=== PATIENT | female | born 1995 | race Caucasian/White ===

== ENCOUNTER → 2018-10-18 | Outpatient (CLI) | payer OTHER | LOC: M.ULTRA 10:06 | DX: E04.1 Nontoxic single thyroid nodule (principal) ==

== ENCOUNTER → 2018-12-16 | Outpatient (CLI) | payer OTHER ==
[2018-12-16] VITALS (22 sets, daily range): BP systolic 96–120; BP diastolic 50–83
[~2018-12-16] MED LIST: OMEPRAZOLE20 MG PO; ZOFRAN ODT4 MG PO
--- NOTE | ~2018-12-16 | CARD ---
[address] [address] CARDIAC CATH REPORT Name: CARLITOS CHACON Room: [facility]#: [id number] Admission: 12/16/18 Attend Phys: Jean-Claude Harvey MD Discharge: Date of : 89 Report #: [id number] THIS REPORT FOR: //name// CC: Antoinette Harvey DATE OF SERVICE: 12/22/2018 TILT TABLE TEST ORDERING PHYSICIAN: Dr. Harvey. INDICATION: Syncope. CONSENT: The risks and benefits of the procedure described to the patient in lay terms. After informed consent, the patient was taken to the systems testing laboratory technician holding area where the procedure was performed. Her pretest blood pressure and heart rate were 117/72 with heart rate of 79 in sinus rhythm. Her blood pressure and heart rate were monitored at approximately 5-minute intervals. She was tilted to 90 degrees. At that time, her blood pressure was 109/72 with a pulse of 94. At approximately 20 minutes, the patient was given nitroglycerin 0.4 mg. At that time, her blood pressure is 109/72 with a pulse of 93, again still in sinus rhythm. She got dizzy and lightheaded, but had no loss of consciousness. She had no cardiac pauses or tachyarrhythmia. IMPRESSION: Negative upright tilt table test for neurocardiogenic syncope. By: [id number] Stewart MD, CATRINAC /nt
== END | disposition home or self-care (01) ==
LOC: M.CL 08:10
DX: R55 Syncope and collapse (principal); Z79.899 Other long term (current) drug therapy

== ENCOUNTER → 2019-01-31 | Outpatient (CLI) | payer OTHER | LOC: M.ULTRA 10:15 | DX: N94.6 Dysmenorrhea, unspecified (principal); N92.0 Excessive and frequent menstruation with regular cycle; D64.9 Anemia, unspecified; J45.909 Unspecified asthma, uncomplicated; F17.200 Nicotine dependence, unspecified, uncomplicated; F32.9 Major depressive disorder, single episode, unspecified; Z72.89 Other problems related to lifestyle; Z79.899 Other long term (current) drug therapy ==

== ENCOUNTER → 2019-03-15 | Outpatient (CLI) | payer OTHER | LOC: M.ULTRA 13:21 | DX: E04.1 Nontoxic single thyroid nodule (principal) ==

== ENCOUNTER → 2019-04-22 | Outpatient (CLI) | payer OTHER ==
--- NOTE | 2019-04-26 17:06 | PATH ---
[address] [address] PATHOLOGY RPT PROCEDURE Name: CARLITOS CHACON Room: [facility]#: [id number] Admission: 04/22/19 Date of : 89 Discharge: Report #: [id number] Path Case #: [id number] Note [facility] Accession Number: [id number] TESTS RESULT FLAG UNITS REF RANGE LAB Clinician Provided Cytology Information No. of containers..01 Other (Miscellaneous) Source: THYROID NODULE DIAGNOSIS: THYROID NODULE, ULTRASOUND-GUIDED FNA BIOPSY: INCONCLUSIVE. B[place] CATEGORY III. ATYPIA OF UNDETERMINED SIGNIFICANCE.SEE COMMENT. THIS INTERPRETATION INCLUDES EVALUATION OF A CELL BLOCK. COMMENT: A RETAIN SAMPLE WILL BE SUBMITTED FOR MOLECULAR STUDIES AND WILL BE THE SUBJECT OF A SEPARATE REPORT. REVIEWED WITH DR. CHRISTINE LAKE (CYTOPATHOLOGIST), WHO AGREES WITH THE DIAGNOSIS. Pathologist ICD10: 02 R89.6 Signed out by: 02 Osmar Roman MD, Pathologist NPI- [id number] Performed by: Dian Smith, Class 1 Owner Operator ([facility]) Gross description: 11 ML, CHASTITY, CLEAR /LCS 08/09/1840 0000 Local FLAG LEGEND: L-Low Normal,H-High Normal,LL-Alert Low,HH-Alert High <-Panic Low,>-Panic High,A-Abnormal,AA-Critical Abnormal Performed at: [address] [place] [address] Shahriar Amos MD, [address] [id number] Osmar Roman MD, Specimen Comment: A courtesy copy of this report has been sent to Specimen Comment: [phone]. Specimen Comment: Report sent to Performed at: [address], [place], [place] [id number] MD Shahriar Amos MD Phone: [phone]
== END | disposition home or self-care (01) ==
LOC: M.ULTRA 04-06 08:30
DX: E04.1 Nontoxic single thyroid nodule (principal); R89.6 Abnormal cytological findings in specimens from other organs, systems and tissues; Z79.899 Other long term (current) drug therapy

== ENCOUNTER 2020-06-17 10:13 | Emergency (ER) | payer OTHER ==
[~2020-06-17] VITALS: Ht 172.7 cm; Wt 107.0 kg
[2020-06-17] MEDS ORDERED: BUPROPION XL300 MG PO (10:25)
[2020-06-17] MEDS ORDERED: OSTERA TABLET1 EAC1 PO (10:25)
[2020-06-17] MEDS ORDERED: ALBUTEROL2.5 MG/0.1 INH (10:25)
[2020-06-17] MEDS ORDERED: BACTRIM DS TAB1 EACH PO (12:28)
[2020-06-17] MEDS ORDERED: KEFLEX500 M1 PO (12:28)
[2020-06-17] MEDS ORDERED: CENTANY30 GM TOP (12:28)
[2020-06-17 13:08] VITALS: BP 128/72
== END 2020-06-17 13:09 | disposition home or self-care (01) ==
LOC: M.ERS 10:13
DX: T23.101A Burn of first degree of right hand, unspecified site, initial encounter (principal); T31.0 Burns involving less than 10% of body surface; J45.909 Unspecified asthma, uncomplicated; Z88.8 Allergy status to other drugs, medicaments and biological substances; W29.8XXA Contact with other powered hand tools and household machinery, initial encounter; Y93.89 Activity, other specified; Y92.89 Other specified places as the place of occurrence of the external cause; Y99.8 Other external cause status

== ENCOUNTER 2021-03-16 18:06 | Emergency (ER) | payer OTHER ==
[~2021-03-16] VITALS: Ht 172.7 cm; Wt 90.7 kg
[~2021-03-16 18:06] MED LIST changes: +ALBUTEROL2.5 MG/0.1 INH; +BACTRIM DS TAB1 EACH PO; +BUPROPION XL300 MG PO; +CENTANY30 GM TOP; +KEFLEX500 M1 PO; +OSTERA TABLET1 EAC1 PO
[2021-03-16 18:42] VITALS: BP 119/68
[2021-03-16] MEDS ORDERED: ZOLOFT100 MG PO (18:47)
[2021-03-16] MEDS ORDERED: CEPHALEXIN500 MG PO (19:50)
[2021-03-16] MEDS ORDERED: MEDROLDOSEPACK PO (19:50)
== END 2021-03-16 19:53 | disposition home or self-care (01) ==
LOC: M.ERS 18:06
DX: J20.9 Acute bronchitis, unspecified (principal); Z20.822 Contact with and (suspected) exposure to COVID-19; J45.909 Unspecified asthma, uncomplicated; Z79.899 Other long term (current) drug therapy; Z88.1 Allergy status to other antibiotic agents; Z88.8 Allergy status to other drugs, medicaments and biological substances